=== PATIENT | male | born 1990 | race Caucasian/White ===

== ENCOUNTER 2020-07-27 18:49 | Emergency (ER) | payer MEDICAID ==
--- NOTE | 2020-07-27 18:54 | ERPHSYRPT ---
- History of Present Illness Time Seen by Provider: 07/27/20 18:54 Source: patient Exam Limitations: no limitations Physician History: This is a right-handed 29-year-old male who states that he does have anger issues and punches things often. He has had right hand fractures in the past. 4 days ago, he punched a wall. He has had significant pain in the knuckle of the fourth and fifth digits of the right hand. He is also concerned that there is some digit deformities in digits 4 and 5 on the right hand. Occurred: days ago (4) Method of Injury: direct blow (Patient punched a wall) Quality: aching Severity of Pain-Max: moderate Severity of Pain-Current: mild (Mild to moderate) Extremities Pain Location: hand: right, 4th finger: right, 5th finger: right Modifying Factors: Improves With: movement Allergies/Adverse Reactions: morphine Allergy (Verified 07/27/20 19:07) Itching Home Medications: No Reportable Medications [No Reported Medications] 07/27/20 [History] Travel Risk - International Travel Have you traveled outside of the country in past 3 weeks: No - Coronavirus Screening Are you exhibiting any of the following symptoms?: No Close contact with a COVID-19 positive Pt in past 14-21 Days: No - Review of Systems Constitutional: No Symptoms Eyes: No Symptoms Ears, Nose, & Throat: No Symptoms Respiratory: No Symptoms Cardiac: No Symptoms Abdominal/Gastrointestinal: No Symptoms Genitourinary Symptoms: No Symptoms Musculoskeletal: Deformity (Right fourth and fifth digits), Injury (Right hand) Skin: No Symptoms Neurological: No Symptoms Psychological: No Symptoms Endocrine: No Symptoms Hematologic/Lymphatic: No Symptoms Immunological/Allergic: No Symptoms All Other Systems: Reviewed and Negative - Past Medical History Pertinent Past Medical History: Yes Neurological History: No Pertinent History ENT History: No Pertinent History Cardiac History: No Pertinent History Respiratory History: No Pertinent History Endocrine Medical History: No Pertinent History Musculoskeletal History: No Pertinent History GI Medical History: No Pertinent History History: No Pertinent History Psycho-Social History: No Pertinent History Male Reproductive Disorders: No Pertinent History - Past Surgical History Past Surgical History: Yes Neuro Surgical History: No Pertinent History Cardiac: No Pertinent History Respiratory: No Pertinent History Genitourinary: No Pertinent History Musculoskeletal: No Pertinent History Male Surgical History: No Pertinent History - Nursing Vital Signs Nursing Vital Signs: Initial Vital Signs Temperature 98.3 F 07/27/20 19:09 Pulse Rate 99 H 07/27/20 19:09 Respiratory Rate 18 07/27/20 19:09 Blood Pressure 118/65 07/27/20 19:09 O2 Sat by Pulse Oximetry 97 07/27/20 19:09 Pain Scale Pain Intensity 6 - Physical Exam General Appearance: no apparent distress, alert, anxiety Eyes, Ears, Nose, Throat Exam: normal ENT inspection, moist mucous membranes Neck Exam: normal inspection, non-tender, supple, full range of motion Cardiovascular/Respiratory Exam: chest non-tender, no respiratory distress Abdominal Exam: non-tender Back Exam: normal inspection, normal range of motion, No CVA tenderness, No vertebral tenderness Shoulder Exam: normal inspection, non-tender, no evidence of injury, normal ROM Elbow/Forearm Exam: normal inspection, non-tender, no evidence of injury, normal ROM Wrist Exam: normal inspection, non-tender, no evidence of injury, normal ROM Hand Exam: deformity (The patient is holding digits 4 and 5 in more of a flexed position then the other digits of the right hand.), limited ROM (Patient states that he has tenderness in the fourth and fifth digits at the proximal phalanxdistal metacarpal joint space.), stiffness Neuro/Tendon Exam: normal sensation Mental Status Exam: alert, oriented x 3, cooperative Skin Exam: abrasion (Wounds on the knuckles of the right hand.), other (No evidence of infection of the right hand) SpO2 Interpretation: normal O2 Delivery: Room Air - Course Nursing assessment & vital signs reviewed: Yes Ordered Tests: Active Orders 24 hr Category Date Time Status HAND (MINIMUM 3 VIEWS) Stat Exams 07/27/20 19:42 Taken WRIST (MIN 3 VIEWS) Stat Exams 07/27/20 19:42 Taken - Progress Progress: unchanged Progress Note: 07/27/20 20:00 Right hand x-ray shows no acute fracture or dislocation. Right hand wrist x-ray shows no acute fracture or dislocation. Counseled pt/family regarding: diagnosis, need for follow-up, rad results - Departure Departure Disposition: Home Clinical Impression: Abrasion of right hand and fingers, Contusion of right hand, initial encounter, Right wrist pain Condition: Stable Critical Care Time: No Referrals: DOCTOR,NO FAMILY [Primary Care Provider] - [facility]-Ortho M-F [id number] (Patient status post punching a wall 4 days ago. Patient has abrasions and pain in his right hand. Specifically, there is some abnormal positioning of his fingers 4 and 5 of the right hand. Question chronic? No obvious dislocation or fracture of his right hand on x-ray) Additional Instructions: Ice pack to right hand and wrist 3-4 times a day over the next 48 hours. Keep the abrasion sites clean with soap and water daily. May apply antibiotic ointment of choice to the sites once a day. Follow-up tomorrow at [facility] orthopedic clinic between the hours of 8 and 9:30 in the morning for further management.
[2020-07-27] MEDS ORDERED: NORCO 5/325 MG PO ONE (20:05)
[2020-07-27] MEDS ORDERED: NORCO 5/325 MG ONE (20:15)
[2020-07-27 20:24] VITALS: BP 112/59; PULSE 92; O2SAT 96
--- NOTE | 2020-07-28 08:51 | XRAY ---
Indication: Pain following punching injury 5 days ago. Comparison: None 3 view right wrist obtained. No bony, articular, or soft tissue abnormalities.
--- NOTE | 2020-07-28 08:51 | XRAY ---
Indication: Pain following punching injury 5 days ago. Comparison: None 3 view right hand obtained. No bony, articular, or soft tissue abnormalities.
== END 2020-07-27 20:24 | disposition home or self-care (01) ==
LOC: ED 18:49
DX: S60.511A Abrasion of right hand, initial encounter (principal); S60.221A Contusion of right hand, initial encounter; M25.531 Pain in right wrist; W22.01XA Walked into wall, initial encounter; Y93.89 Activity, other specified; Y92.89 Other specified places as the place of occurrence of the external cause; M79.644 Pain in right finger(s); S60.414A Abrasion of right ring finger, initial encounter; S60.416A Abrasion of right little finger, initial encounter; Y93.9 Activity, unspecified
CPT/HCPCS: 29131; 73110; 73130; 99284; A9270-GY

== ENCOUNTER 2020-09-30 03:06 | Emergency (ER) | payer OTHER | END 2020-09-30 04:02 | disposition home or self-care (01) | LOC: ED 03:06 | DX: S41.112A Laceration without foreign body of left upper arm, initial encounter (principal) | CPT/HCPCS: 12002; 99283 ==

== ENCOUNTER 2020-12-15 12:13 | Emergency (ER) | payer OTHER ==
[2020-12-15 12:22] VITALS: BP 106/83; PULSE 67; O2SAT 100
[2020-12-15] MEDS ORDERED: TYLENOL 325 MG PO STA (12:30)
[2020-12-15] MEDS ORDERED: TYLENOL 325 MG ONE (12:31)
--- NOTE | 2020-12-15 12:54 | XRAY ---
Indication: Index finger laceration following fall. Comparison: None 3 view left 2nd finger obtained. No bony, articular, or soft tissue abnormalities.
--- NOTE | 2020-12-15 13:00 | ERPHSYRPT ---
- History of Present Illness Time Seen by Provider: 12/15/20 12:17 Source: patient Exam Limitations: no limitations Patient Subjective Stated Complaint: Pt states "I was on a hover board and I fell and got my finger caught in a closet door and I am sure I broke it." Triage Nursing Assessment: Pt presented alert and oriented X 3, skin pwd Pt ambulates with an upright steady gait, able to speak in clear full setnences. Pt cursing, speaking loud, acting boisterous and overly joking. Physician History: 30 years old up-to-date with tetanus presented in the ER with chief complaint of left index finger pain and mild swelling since yesterday after he fell off of hover board and his finger got into a closet door. There is abrasion but no laceration. Complaining of difficulty movements at interphalangeal joints. No injury anywhere else. Occurred: yesterday Method of Injury: fell Quality: sharpness Severity of Pain-Max: moderate Severity of Pain-Current: moderate Extremities Pain Location: 2nd finger: left Modifying Factors: Improves With: immobilization. Worsens With: movement Associated Symptoms: none Allergies/Adverse Reactions: morphine Allergy (Verified 07/27/20 19:07) Itching Home Medications: No Reportable Medications [No Reported Medications] 07/27/20 [History] Hx Tetanus, Diphtheria Vaccination/Date Given: No Hx Influenza Vaccination/Date Given: No Hx Pneumococcal Vaccination/Date Given: No Immunizations Up to Date: Yes Travel Risk - International Travel Have you traveled outside of the country in past 3 weeks: No - Coronavirus Screening Are you exhibiting any of the following symptoms?: No Close contact with a COVID-19 positive Pt in past 14-21 Days: No - Vaccine Status Have you recieved a Covid-19 vaccination: No - Review of Systems Constitutional: No Symptoms Ears, Nose, & Throat: No Symptoms Respiratory: No Symptoms Cardiac: No Symptoms Abdominal/Gastrointestinal: No Symptoms Musculoskeletal: Injury, Joint Pain Skin: Skin Lesions Neurological: No Symptoms Hematologic/Lymphatic: No Symptoms Immunological/Allergic: No Symptoms - Past Medical History Pertinent Past Medical History: Yes Neurological History: No Pertinent History ENT History: No Pertinent History Cardiac History: No Pertinent History Respiratory History: No Pertinent History Endocrine Medical History: No Pertinent History Musculoskeletal History: No Pertinent History GI Medical History: No Pertinent History History: No Pertinent History Psycho-Social History: No Pertinent History Male Reproductive Disorders: No Pertinent History - Past Surgical History Past Surgical History: Yes Neuro Surgical History: No Pertinent History Cardiac: No Pertinent History Respiratory: No Pertinent History Gastrointestinal: Cholecystectomy Genitourinary: No Pertinent History Musculoskeletal: No Pertinent History Male Surgical History: No Pertinent History - Social History Smoking Status: Current every day smoker Exposure to second hand smoke: Yes Drug Use: none Patient Lives Alone: No - Nursing Vital Signs Nursing Vital Signs: Initial Vital Signs Temperature 97.8 F 12/15/20 12:17 Pulse Rate 67 12/15/20 12:17 Respiratory Rate 20 12/15/20 12:17 Blood Pressure 106/83 12/15/20 12:17 O2 Sat by Pulse Oximetry 100 12/15/20 12:17 Pain Scale Pain Intensity 3 - Physical Exam General Appearance: no apparent distress, alert Eyes, Ears, Nose, Throat Exam: normal ENT inspection Neck Exam: normal inspection, full range of motion Cardiovascular/Respiratory Exam: normal breath sounds, regular rate/rhythm Wrist Exam: normal inspection, non-tender, no evidence of injury Hand Exam: bone tenderness (Left index finger middle phalanx abrasion with minimal swelling and tenderness. Intact range of motion at proximal and distal interphalangeal joints.), soft tissue tenderness Neuro/Tendon Exam: normal sensation, normal motor functions, normal tendon functions Mental Status Exam: alert, oriented x 3, cooperative Skin Exam: normal color SpO2 Interpretation: normal SpO2: 100 O2 Delivery: Room Air Ordered Tests: Active Orders 24 hr Category Date Time Status FINGER(S) Stat Exams 12/15/20 12:39 Completed Medication Summary Discontinued Medications Generic Name Dose Route Start Last Admin Trade Name Marivel PRN Reason Stop Dose Admin Acetaminophen 650 mg 12/15/20 12:30 12/15/20 12:31 Acetaminophen 325 Mg Tablet PO 12/15/20 12:31 650 mg STAT STA Administration Acetaminophen Confirm 12/15/20 12:31 Acetaminophen 325 Mg Tablet Administered 12/15/20 12:32 Dose 650 mg .ROUTE .STK-MED ONE - Progress Progress: improved, pain not gone completely Progress Note: 12/15/20 12:58 Given symptomatic treatment for pain. No difficulty movements at interphalangeal joints. X-rays negative for fracture dislocation. Recommended ice, Tylenol ibuprofen and outpatient follow-up. Counseled pt/family regarding: diagnosis, need for follow-up, rad results - Departure Departure Disposition: Home Clinical Impression: Contusion of finger of left hand Qualifiers: Encounter type: initial encounter Finger: index finger Damage to nail status: without damage Qualified Code(s): S60.022A - Contusion of left index finger without damage to nail, initial encounter Condition: Stable Critical Care Time: No Referrals: DOCTOR,NO FAMILY [Primary Care Provider] - Follow up/PCP as directed ESE GATES MD [ACTIVE STAFF] - Follow up/PCP as directed Instructions: Finger Fracture (DC) Additional Instructions: Take Tylenol/ibuprofen as needed for pain. Avoid exertional activities. Follow-up with primary care for reevaluation. Return to ER for worsening pain swelling or difficulty movements.
== END 2020-12-15 13:12 | disposition home or self-care (01) ==
LOC: ED 12:13
DX: S60.022A Contusion of left index finger without damage to nail, initial encounter (principal); M79.645 Pain in left finger(s); W23.0XXA Caught, crushed, jammed, or pinched between moving objects, initial encounter; Y93.89 Activity, other specified; Y92.89 Other specified places as the place of occurrence of the external cause
CPT/HCPCS: 73140; 99283; A9270-GY

== ENCOUNTER 2020-12-25 06:48 | Emergency (ER) | payer OTHER ==
[2020-12-25] MEDS ORDERED: TORAdol 30 mg Injection IM ONE (07:14)
[2020-12-25] MEDS ORDERED: TORAdol 30 mg Injection ONE (07:15)
--- NOTE | 2020-12-25 07:53 | ERPHSYRPT ---
- History of Present Illness Time Seen by Provider: 12/25/20 07:12 Source: patient Exam Limitations: no limitations Patient Subjective Stated Complaint: pt states "I was in here 4-5 days ago and was told I had a fracture." Triage Nursing Assessment: pt ambulated into the er; pt is axo x4; c/o left index pain; hx left index fx; pt denies f/u with ortho; pt states 7/10; pt has limited ROM; good cap refill to left index finger; hypertension Physician History: 50 years old right-handed dominant male presented in the ER with chief complaint of left index finger pain and swelling for the last 10 days after he fell and or stretches index finger. Patient was evaluated in the ER and had a negative x- ray, was recommended symptomatic treatment but patient kept on moving his finger/hand with exertional activities as well and pain is getting worse, moderate to severe intensity, sharp nature, more with movements and associated swelling of index finger. Occurred: days ago (10) Method of Injury: fell, twisted Quality: sharpness Severity of Pain-Max: moderate Severity of Pain-Current: moderate Extremities Pain Location: 2nd finger: left Modifying Factors: Improves With: immobilization. Worsens With: movement Associated Symptoms: none Allergies/Adverse Reactions: morphine Allergy (Verified 12/25/20 06:52) Itching Hx Tetanus, Diphtheria Vaccination/Date Given: No Hx Influenza Vaccination/Date Given: No Hx Pneumococcal Vaccination/Date Given: No Travel Risk - International Travel Have you traveled outside of the country in past 3 weeks: No - Coronavirus Screening Are you exhibiting any of the following symptoms?: No Close contact with a COVID-19 positive Pt in past 14-21 Days: No - Vaccine Status Have you recieved a Covid-19 vaccination: No - Review of Systems Constitutional: No Symptoms Ears, Nose, & Throat: No Symptoms Respiratory: No Symptoms Cardiac: No Symptoms Abdominal/Gastrointestinal: No Symptoms Genitourinary Symptoms: No Symptoms Musculoskeletal: Injury, Joint Pain, Joint Swelling Skin: No Symptoms Endocrine: No Symptoms - Past Medical History Pertinent Past Medical History: Yes Neurological History: No Pertinent History ENT History: No Pertinent History Cardiac History: No Pertinent History Respiratory History: No Pertinent History Endocrine Medical History: No Pertinent History Musculoskeletal History: No Pertinent History GI Medical History: No Pertinent History History: No Pertinent History Psycho-Social History: No Pertinent History Male Reproductive Disorders: No Pertinent History - Past Surgical History Past Surgical History: Yes Neuro Surgical History: No Pertinent History Cardiac: No Pertinent History Respiratory: No Pertinent History Gastrointestinal: Cholecystectomy Genitourinary: No Pertinent History Musculoskeletal: No Pertinent History Male Surgical History: No Pertinent History - Social History Smoking Status: Current every day smoker Exposure to second hand smoke: Yes Drug Use: none Patient Lives Alone: No - Nursing Vital Signs Nursing Vital Signs: Initial Vital Signs Temperature 98.2 F 12/25/20 06:52 Pulse Rate 101 H 12/25/20 06:52 Respiratory Rate 18 12/25/20 06:52 Blood Pressure 150/99 12/25/20 06:52 O2 Sat by Pulse Oximetry 100 12/25/20 06:52 Pain Scale Pain Intensity 6 - Physical Exam General Appearance: no apparent distress, alert Eyes, Ears, Nose, Throat Exam: normal ENT inspection Neck Exam: normal inspection, supple, full range of motion Cardiovascular/Respiratory Exam: normal breath sounds, regular rate/rhythm Wrist Exam: normal inspection, non-tender, no evidence of injury, normal ROM Hand Exam: limited ROM (Left index finger diffuse swelling. Intact distal neurovascular.), soft tissue tenderness, swelling Neuro/Tendon Exam: normal sensation, normal motor functions Mental Status Exam: alert, oriented x 3, cooperative Skin Exam: normal color SpO2 Interpretation: normal SpO2: 100 O2 Delivery: Room Air Ordered Tests: Active Orders 24 hr Category Date Time Status FINGER(S) Stat Exams 12/25/20 07:34 Taken Medication Summary Discontinued Medications Generic Name Dose Route Start Last Admin Trade Name Piyushq PRN Reason Stop Dose Admin Ketorolac Tromethamine 30 mg 12/25/20 07:14 12/25/20 07:21 Ketorolac Tromethamine 30 Mg/Ml Inj IM 12/25/20 07:15 30 mg STAT ONE Administration Ketorolac Tromethamine Confirm 12/25/20 07:15 Ketorolac Tromethamine 30 Mg/Ml Inj Administered 12/25/20 07:16 Dose 30 mg .ROUTE .STK-MED ONE - Progress Progress: improved, pain not gone completely Progress Note: 12/25/20 07:54 Given Toradol for symptomatic relief. Repeated x-rays are negative for any cute fracture dislocation. Recommended avoiding exertional activities. Will place in finger splint and outpatient orthopedic follow-up. Counseled pt/family regarding: diagnosis, need for follow-up, rad results - Departure Departure Disposition: Home Clinical Impression: Strain of left index finger Condition: Stable Critical Care Time: No Referrals: DOCTOR,NO FAMILY [Primary Care Provider] - Follow up/PCP as directed DEAN BAILEY MD [NON-STAFF PHY W/O PRIVILEGES] - Follow up/PCP as directed Instructions: Finger Sprain (DC) Additional Instructions: Take Tylenol/ibuprofen as needed for pain. Apply intermittent ice. Avoid exertional activities. Follow-up with orthopedic surgery for reevaluation. Return to ER for any worsening. Prescriptions: Ibuprofen 600 mg PO Q6HPRN PRN 10 Days #20 tablet PRN Reason: Pain
--- NOTE | 2020-12-25 08:33 | XRAY ---
Indication: 2nd finger pain following fall days ago. Comparison: December 15, 2020. 3 view left 2nd finger obtained. Again no bony, articular, or soft tissue abnormalities.
== END 2020-12-25 08:21 | disposition home or self-care (01) ==
LOC: ED 06:48
DX: S63.611A Unspecified sprain of left index finger, initial encounter (principal); W19.XXXA Unspecified fall, initial encounter; Z72.0 Tobacco use
CPT/HCPCS: 73140; 96372; 99284; J1885